=== PATIENT | male | born 1985 | race Caucasian/White ===

== ENCOUNTER 2018-05-31 20:59 | Emergency (ER) | payer BC ==
--- NOTE | 2018-05-31 21:24 | ED ---
Headache - HPI Summary HPI Summary: 33 yr old male with severe, 10/10 headache, fever, chills, light sensitivity and neck stiffness. Onset over the past day. He has no runny nose, sore throat cough, NVD. No other complaints - History Of Current Complaint Chief Complaint: UCGeneralIllness Stated Complaint: FEVER/CHILLS Time Seen by Provider: 05/31/18 21:08 - Allergies/Home Medications Allergies/Adverse Reactions: Allergies Allergy/AdvReac Type Severity Reaction Status Date / Time Sulfa (Sulfonamide Allergy Intermediate Hives Verified 05/31/18 21:19 Antibiotics) Home Medications: Home Medications NK [No Home Medications Reported] 05/31/18 [History Confirmed 05/31/18] PMH/Surg Hx/FS Hx/Imm Hx - Surgical History Surgery Procedure, Year, and Place: scleral buckle Infectious Disease History: No Infectious Disease History: Denies: Traveled Outside the [place] in Last 30 Days - Family History Known Family History: Positive: None - Social History Alcohol Use: Occasionally Substance Use Type: Reports: None Smoking Status (MU): Never Smoked Tobacco Review of Systems Positive: Fever, Chills Positive: Headache All Other Systems Reviewed And Are Negative: Yes Physical Exam Triage Information Reviewed: Yes Vital Signs On Initial Exam: Initial Vitals Temp Pulse Resp BP Pulse Ox 101.4 F 146 16 146/127 99 05/31/18 21:13 05/31/18 21:13 05/31/18 21:13 05/31/18 21:13 05/31/18 21:13 Vital Signs Reviewed: Yes Appearance: Positive: Ill-Appearing Skin: Positive: Warm, Skin Color Reflects Adequate Perfusion Head/Face: Positive: Normal Head/Face Inspection Eyes: Positive: Other: - photophobia ENT: Positive: Normal ENT inspection Neck: Positive: Other: - discomfort on movement of neck Respiratory/Lung Sounds: Positive: Clear to Auscultation, Breath Sounds Present Cardiovascular: Positive: RRR. Negative: Murmur Abdomen Description: Negative: Nontender Musculoskeletal: Positive: Strength/ROM Intact Neurological: Positive: Sensory/Motor Intact, Alert, Oriented to Person Place, Time, CN Intact II-III, Normal Gait, Speech Normal Psychiatric: Positive: Normal - Barb Coma Scale Best Eye Response: 4 - Spontaneous Best Motor Response: 6 - Obeys Commands Best Verbal Response: 5 - Oriented Coma Scale Total: 15 Diagnostics - Vital Signs Vital Signs Temp Pulse Resp BP Pulse Ox 05/31/18 21:13 101.4 F 146 16 146/127 99 - Laboratory Lab Statement: Any lab studies that have been ordered have been reviewed, and results considered in the medical decision making process. Headache Course/Dx - Course Course Of Treatment: Case Discussed with Dr Holloway at [facility]. He is going by EMS. - Diagnoses Provider Diagnoses: Headache, Hypertension Discharge - Sign-Out/Discharge Documenting (check all that apply): Patient Departure All imaging exams completed and their final reports reviewed: No Studies - Discharge Plan Condition: Fair Disposition: TRANS HIGHER LVL OF CARE FAC Referrals: No Primary Care Phys,NOPCP [Primary Care Provider] - - Billing Disposition and Condition Condition: FAIR Disposition: Trans Higher Lvl of Care Fac
[2018-05-31 22:09] VITALS: BP 128/85
== END 2018-05-31 21:33 | disposition short-term general hospital (02) ==
LOC: UCCORT 20:59
DX: R51 Headache (principal); I10 Essential (primary) hypertension; R50.9 Fever, unspecified; M25.60 Stiffness of unspecified joint, not elsewhere classified; Z88.2 Allergy status to sulfonamides
CPT/HCPCS: 99203; G0463